=== PATIENT | female | born 1940 | race Caucasian/White ===

== ENCOUNTER 2018-03-06 11:26 | Emergency (ER) | payer MEDICARE, BC ==
[2018-03-06] MEDS ORDERED: SODIUM CHLORIDE 0.9% FLUSH 10 ML SOL IV PRN (11:28)
[2018-03-06] MEDS ORDERED: ASPIRIN 81 MG CHEWABLE CTB PO STA (11:28)
[2018-03-06] MEDS ORDERED: NITROGLYCERIN 0.4 MG TAB SL PRN (11:28)
[2018-03-06] MEDS ORDERED: ASPIRIN 81 MG CHEWABLE CTB ONE (11:35)
[2018-03-06] MEDS ORDERED: NITROGLYCERIN 0.4 MG TAB SL ONE (11:35)
[2018-03-06 11:42] LABS: BASOPHILS % (AUTO) 1 % (0-3); EOSINOPHILS % (AUTO) 3 % (0-9); HEMATOCRIT 42 % (35-47); HEMOGLOBIN 12.4 gm/dl (12.0-15.5); LYMPHOCYTES % (AUTO) 26.3 % (10-50); MEAN CORPUSCULAR HEMOGLOBIN 22.8 pg (27.0-32.0); MEAN CORPUSCULAR HGB CONC 29.4 gm/dl (32.0-36.0); MONOCYTES % (AUTO) 8.7 % (0-12); NEUTROPHILS % (AUTO) 60.8 % (37-80)
[2018-03-06 11:53] LABS: INR 0.97 (0.86-1.12)
[2018-03-06] MEDS ORDERED: KETOROLAC TROMETHAMINE 30 MG/ML SOL IV ONE (11:54)
[2018-03-06 11:56] LABS: BLOOD UREA NITROGEN 14 mg/dl (7-18); CALCIUM 9.4 mg/dl (8.5-10.1); CARBON DIOXIDE 27.1 mEq/L (21-32); CHLORIDE 105 mMol/L (98-107); CREATINE KINASE 85 U/L (26-192); CREATININE 0.87 mg/dl (0.60-1.00); GLUCOSE 140 mg/dl (74-106); POTASSIUM 3.9 mMol/L (3.5-5.1); SODIUM 141 mMol/L (136-145); TROP I < 0.017 ng/ml (0.000-0.056)
[2018-03-06 12:00] LABS: MEAN CORPUSCULAR VOLUME 78 fL (81-99)
[2018-03-06 12:01] VITALS: RESP 18; TEMP 97.4
[2018-03-06] MEDS ORDERED: KETOROLAC TROMETHAMINE 30 MG/ML SOL ONE (12:08)
[2018-03-06 12:17] LABS: ANISOCYTOSIS SLIGHT
[2018-03-06 13:03] VITALS: BP 132/66; PULSE 68; O2SAT 94
== END 2018-03-06 12:59 | disposition home or self-care (01) | DRG 313 ==
LOC: ED 11:26
DX: R07.89 Other chest pain (principal)
CPT/HCPCS: 71045; 80048; 82550; 84484; 85025; 85610; 85730; 93005; 96374; 99284; J1885; A9270-GY